=== PATIENT | female | born 1980 | race Caucasian/White ===

== ENCOUNTER → 2025-07-26 | Emergency (ER) | payer MEDICARE, BC ==
[~2025-07-26] MED LIST: HYDROmorphone 0.5 MG/0.5 ML SYRINGE ONE
[2025-07-26 21:18] LABS: #Basophils 0.07 10x3/uL (0.0-0.2); #Eosinophils 0.22 10x3/uL (0.0-0.5); #Monocytes 1.07 10x3/uL (0.0-1.1); #Neutrophils 4.02 10x3/uL (1.5-8.4); %Basophils 0.9 % (0.0-2.0); %Eosinophils 2.9 % (0.0-6.0); %Lymphocytes 29.6 % (18.0-47.0); %Monocytes 13.9 % (0.0-10.0); %Neutrophils 52.3 % (40.0-75.0); Hematocrit 36.2 % (34.9-44.5); Hemoglobin 11.9 g/dL (12.0-15.5); Mean Corpuscular Hemoglobin 29.7 pg (27.0-33.0); Mean Corpuscular Volume 90.3 fL (81.6-98.3); Platelet Count 210 10x3/uL (150-450); Red Blood Cell (RBC) Count 4.01 10x6/uL (3.90-5.03); White Blood Cell (WBC) Count 7.69 10x3/uL (3.5-10.5)
[2025-07-26 21:34] LABS: ALT (SGPT) 22 U/L (Less than 34); AST (SGOT) 27 U/L (11-34); Albumin 4.2 g/dL (3.1-4.5); Alkaline Phosphatase 81 U/L (40-110); Anion Gap 13 mmol/L (10-20); BUN (Urea Nitrogen) 21 mg/dL (7.0-18.7); Bilirubin, Total 0.2 mg/dL (0.3-1.2); Calc. Creatinine Clearance 0 mL/min (70-130); Calcium 9.6 mg/dL (7.8-10.44); Carbon Dioxide 25 mmol/L (22-29); Chloride 106 mmol/L (98-107); Globulin 3.0 g/dL (2.4-3.5); Glucose 79 mg/dL (70-105); Potassium 4.2 mmol/L (3.5-5.1); Sodium 140 mmol/L (136-145)
== END ==
LOC: CSHERS 19:46
DX: T84.030A Mechanical loosening of internal right hip prosthetic joint, initial encounter (principal); M25.551 Pain in right hip; J45.909 Unspecified asthma, uncomplicated; I25.2 Old myocardial infarction; K21.9 Gastro-esophageal reflux disease without esophagitis; Z79.51 Long term (current) use of inhaled steroids; Z79.899 Other long term (current) drug therapy
CPT/HCPCS: 73502; 73564; 80053; 85025; J1171; 96374; 96375; 96376